=== PATIENT | male | born 2000 | race Caucasian/White ===

== ENCOUNTER 2022-09-08 14:43 | Emergency (ER) | payer MEDICAID ==
[~2022-09-08] VITALS: Ht 165.1 cm; Wt 77.3 kg
[2022-09-08 15:10] LABS: COVID AG,FIA SOURCE NASAL SWAB
[2022-09-08 15:25] LABS: RAPID GROUP A STREP NEGATIVE (NEGATIVE)
[2022-09-08 15:31] LABS: INFLUENZA TYPE A NEGATIVE FOR TYPE A (NEGATIVE); INFLUENZA TYPE B NEGATIVE FOR TYPE B (NEGATIVE)
[2022-09-08 15:40] VITALS: BP 141/62
== END 2022-09-08 15:48 | disposition home or self-care (01) ==
LOC: EMS 14:43
DX: J11.1 Influenza due to unidentified influenza virus with other respiratory manifestations (principal); Z20.822 Contact with and (suspected) exposure to COVID-19; R50.9 Fever, unspecified; R11.0 Nausea
CPT/HCPCS: 87430; 87804; 99283